=== PATIENT | male | born 1975 | race American Indian/Alaskan Native ===

== ENCOUNTER 2021-08-09 10:06 | Outpatient (CLI) | payer OTHER ==
--- NOTE | 2021-08-09 10:45 | XRay Report ---
BILATERAL KNEES 3 VIEWS INDICATION: BILATERAL KNEE PAIN. COMPARISON: None. IMPRESSION: Mild tricompartmental osteoarthritic changes are identified in the right knee. Moderate tricompartmental osteoarthritic changes are identified in the left knee. No evidence for fracture, b one lesion or chronic injury. Small left knee effusion is identified. Signer Name: Darin Gomez Jr, MD Signed: 08/09/2021 10:41 AM Workstation Name: [id number]
== END 2021-08-09 10:07 | disposition home or self-care (01) ==
LOC: XRAY 10:06
PROVIDERS: ATTEND Internal Medicine
DX: M17.0 Bilateral primary osteoarthritis of knee (principal)